=== PATIENT | female | born 1975 | race Caucasian/White ===

== ENCOUNTER 2020-11-24 06:06 | Inpatient (IN) ==
[~2020-11-24 06:06] MED LIST: Acetaminophen IV 1,000 MG/100 ML BAG IVPB PRN; Ondansetron 4 MG/2 ML VIAL IVP PRN
[2020-11-24] MEDS ORDERED: Ketorolac 15 MG/ML VIAL IVP ONE (06:23)
[2020-11-24] MEDS ORDERED: CeFAZolin Syr 2,000MG/20 ML 2,000 MG/20 ML SYRINGE IVPB ONE (06:23)
[2020-11-24] MEDS: Ringers Solution, Lactated 1,000 ML IVC SCH ×3 (06:54→18:26)
[2020-11-24] MEDS ORDERED: Lidocaine HCL 4 ML Topical Solution (Laryng-O-Jet Kit Sterile Pak) TP ONE (06:58)
[2020-11-24] MEDS ORDERED: *HR* Rocuronium Bromide 50 MG/5 ML VIAL ONE (07:02)
[2020-11-24] MEDS ORDERED: *HR* Midazolam HCl 2 MG/2 ML VIAL ONE (07:02)
[2020-11-24] MEDS ORDERED: Lidocaine -MPF 2% 2 ML VIAL ONE (07:02)
[2020-11-24] MEDS ORDERED: *HR* FentaNYL (PF) 100 MCG/2 ML VIAL ONE (07:02)
[2020-11-24] MEDS ORDERED: Ondansetron 4 MG/2 ML VIAL ONE (07:02)
[2020-11-24] MEDS ORDERED: Dexamethasone 4 MG/ML VIAL ONE (07:02)
[2020-11-24] MEDS ORDERED: *HR* Propofol 200 MG/20 ML VIAL IVP ONE (07:02)
[2020-11-24] MEDS ORDERED: *HR* HYDROcodone/Acet 5/325 mg TABLET PO PRN (08:00)
[2020-11-24] MEDS ORDERED: *HR* HYDROmorphone (PF) 1 MG/ML SYRINGE IVP PRN ×2 (08:00→09:09)
[2020-11-24] MEDS ORDERED: *HR* HYDROMORPHONE 2 MG/ML VIAL ONE (08:25)
[2020-11-24] MEDS ORDERED: Naloxone 0.4 MG/ML INJ IVP PRN (09:07)
[2020-11-24] MEDS ORDERED: Ondansetron 4 MG/2 ML VIAL IVP PRN (09:09)
[2020-11-24] MEDS ORDERED: *HR* OxyCODONE/APAP 5/325 TABLET PO PRN (09:09)
[2020-11-24] MEDS ORDERED: Ringers Solution, Lactated 1,000 ML IVC SCH (09:15)
[2020-11-24] MEDS: Ketorolac 15 MG/ML VIAL IVP SCH ×2 (12:20→18:27)
[2020-11-24] MEDS: *HR* OxyCODONE/APAP 5/325 TABLET PO PRN ×2 (14:05→21:51)
[2020-11-24] MEDS: ceFAZolin 1,000 MG in Water for inj. (sterile) 10 ML IVP SCH (14:05)
[2020-11-25] MEDS: ceFAZolin 1,000 MG in Water for inj. (sterile) 10 ML IVP SCH ×2 (00:36→08:29)
[2020-11-25] MEDS: Ketorolac 15 MG/ML VIAL IVP SCH ×2 (00:52→06:35)
[2020-11-25 04:51] LABS: Basophils # 0.1 K/mcL (0.0-0.2); Basophils % 0.5 %; Eosinophils % 0.2 %; Hematocrit 30.8 % (35.3-44.9); Hemoglobin 10.1 g/dL (11.5-15.4); Immature Granulocytes % 0.4 % (0-4); Lymphocytes # 2.4 K/mcL (0.6-4.6); Lymphocytes % 21.5 %; Mean Corpuscular HGB Conc 32.8 g/dL (31.6-35.5); Mean Corpuscular Volume 91.4 fL (83.0-100.0); Mean Platelet Volume 10.4 fL (9.4-12.4); Monocytes # 0.6 K/mcL (0.0-1.3); Monocytes % 5.5 %; Platelet Count 196 K/mcL (140-400); Red Blood Count 3.37 M/mcL (3.82-4.97); Red Cell Distribution Width 13.5 % (11.5-14.5); Segmented Neutrophils % 71.9 %; White Blood Count 11.1 K/mcL (4.3-11.1)
[2020-11-25 05:04] LABS: eGFR For African Americans > 60 (> 60); eGFR For Non-African Americans > 60 (> 60)
[2020-11-25 08:09] VITALS: BP 119/73
[2020-11-25] MEDS: *HR* OxyCODONE/APAP 5/325 TABLET PO PRN (10:53)
== END 2020-11-25 14:15 | disposition home or self-care (01) | DRG 743 ==
LOC: SAMDAY 06:06 → 1NENUOBS 09:36
PROVIDERS: ADMIT Obstetrics & Gynecology; ATTEND Obstetrics & Gynecology